=== PATIENT | female | born 1985 | race American Indian/Alaskan Native ===

== ENCOUNTER 2016-07-28 14:33 | Emergency (ER) | payer OTHER ==
[2016-07-28 23:08] VITALS: BP 138/86
[2016-07-28 23:13] LABS: Bilirubin,Urine NEG (Negative); Blood,Urine LG (Negative); Ketones,Urine 20 mg/dL (Negative); Leukocyte Esterase,Urine NEG (Negative); Mucus,Urine 1+ /HPF; Nitrite,Urine NEG (Negative); Urobilinogen,Urine < 2.0 mg/dL (<2.0)
[2016-07-28 23:14] LABS: RBC,Urine > 182.0 /HPF (0.0-6.0)
[2016-07-28] MEDS ORDERED: FLAGYL PO ONE (23:20)
== END 2016-07-28 23:20 | disposition home or self-care (01) ==
LOC: ED 14:33
DX: A59.9 Trichomoniasis, unspecified (principal)
CPT/HCPCS: 81001; 81025; 87086; 87210; 87591; 99283

== ENCOUNTER 2017-08-22 12:12 | Emergency (ER) | payer MEDICAID ==
[2017-08-22 12:24] VITALS: BP 135/81
[2017-08-22] MEDS ORDERED: FUL-GLO OP ONE (16:28)
[2017-08-22] MEDS ORDERED: TETRACAINE 0.5% OU ONE (16:28)
--- NOTE | 2017-08-22 16:40 | Emergency Department Report ---
[facility] Chief Complaint: Eye Problems Stated Complaint: PAINFUL TOOTH/PINK EYE Time Seen by Provider: 08/22/17 16:24 Duration: Today Side: Left Severity: moderate Symptoms: Yes Eye Itching, Yes Eye Redness, Yes Purulent Drainage, No Eye Pain, No Blurred Vision, No Preceding URI, No H/O Allergic Rhinitis, No Contact Lens Use, No Trauma, No Fever, No Headache Other History: 32F p/w c/o right sided eye irritiation and left upper toothache. Deneis fever, chills, nausea, vomiting. Right eye redness with discharge started yesterday. Toothache has been ongoing for several weeks, patient states he has a wisdom tooth erupting left side. States she has not yet made arrangements to see a dentist. Pt is AAox3, speaking in full sentences. ED Review of Systems ROS: Stated complaint: PAINFUL TOOTH/PINK EYE Other details as noted in HPI Constitutional: denies: chills, fever Eyes: eye pain. denies: eye discharge, vision change ENT: dental pain. denies: ear pain, throat pain Respiratory: denies: cough, shortness of breath, wheezing Cardiovascular: denies: chest pain, palpitations Endocrine: no symptoms reported Gastrointestinal: denies: abdominal pain, nausea, diarrhea Genitourinary: denies: urgency, dysuria, discharge Musculoskeletal: denies: back pain, joint swelling, arthralgia Skin: denies: rash, lesions Neurological: denies: headache, weakness, paresthesias Psychiatric: denies: anxiety, depression Hematological/Lymphatic: denies: easy bleeding, easy bruising ED Past Medical Hx - Past Medical History Hx Hypertension: Yes ( induced) - Surgical History Additional Surgical History: - Social History Smoking Status: Never Smoker Substance Use Type: Alcohol - Medications Home Medications: Home Medications Medication Instructions Recorded Confirmed Last Taken Type Albuterol Sulfate [Albuterol 0.63% 0.63 mg IH TID PRN #1 box 11/04/15 Unknown Rx NEBS] Azithromycin [Zithromax Z-CECILIA] 250 mg PO DAILY #6 tablet 11/04/15 Unknown Rx Benzonatate [Tessalon Perles] 100 mg PO Q8HR #15 capsule 11/04/15 Unknown Rx Amoxicillin [Amoxicillin TAB] 875 mg PO BID #20 tablet 08/25/16 Unknown Rx Fluticasone [Flonase] 1 spray NS QDAY #1 bottle 01/01/16 Unknown Rx predniSONE [Deltasone] 50 mg PO QAM #5 tablet 01/01/16 Unknown Rx Cyclobenzaprine [Flexeril] 10 mg PO TID PRN #30 tablet 03/19/16 Unknown Rx Ibuprofen [Motrin] 800 mg PO Q8HR PRN #30 tablet 03/19/16 Unknown Rx Acetaminophen/Codeine [Tylenol 1 tab PO Q6H PRN #10 tab 08/22/17 Unknown Rx /Codeine # 3 tab] Amoxicillin [Trimox CAP] 500 mg PO Q8H #30 capsule 08/22/17 Unknown Rx Benzocaine [Orajel Liquid 20%] 1 ml MM Q6HR PRN #1 bottle 08/22/17 Unknown Rx Chlorhexidine Mouthwash [Peridex] 15 ml MM BID #1 bottle 08/22/17 Unknown Rx Erythromycin [Erythromycin Ophth 1 applic OP QID #1 tube 08/22/17 Unknown Rx Oint] Ibuprofen [Motrin] 800 mg PO Q8HR PRN #25 tablet 08/22/17 Unknown Rx [facility] Exam - Exam General: Vital signs noted. No distress. Alert and acting appropriately. Eye Exam: Left Injection, Left Chemosis, Both EOMI, Neither Abnormal Pupil, Neither Eye Foreign Body HEENT: No Nasal Congestion, No Pharyngeal Erythema Remainder of HEENT: Abnormal (cavity left upper molar tooth #15) Lungs: Yes Clear Lung Sounds, No Good Air Exchange, No Wheezes, No Stridor, No Cough, No Nasal Flaring, No Retractions, No Use of Accessory Muscles ED Course Vital Signs 08/22/17 12:17 Temperature 97.7 F Pulse Rate 76 Respiratory 16 Rate Blood Pressure 135/81 Blood Pressure 135/81 [Left] O2 Sat by Pulse 100 Oximetry ED Medical Decision Making - Medical Decision Making A/P: Conjunctivitis, toothache, wisdom tooth 1- Motrin when necessary, amoxicillin ten-day course, Orajel when necessary, Peridex mouthwash daily basis, short course codeine when necessary, erythromycin eye ointment 2- I provided patient with information for multiple dental clinics to follow up for cavity 3- no clinical signs of facial abscess, no Justin's angina, no induration or cellulitis of floor of mouth or tongue 4- patient able to tolerate by mouth before discharge Critical care attestation.: If time is entered above; I have spent that time in minutes in the direct care of this critically ill patient, excluding procedure time. ED Disposition Clinical Impression: Toothache Conjunctivitis Qualifiers: Conjunctivitis type: acute Acute conjunctivitis type: unspecified Laterality: right Qualified Code(s): H10.31 - Unspecified acute conjunctivitis, right eye Disposition: - TO HOME OR SELFCARE Is pt being admited?: No Does the pt Need Aspirin: No Condition: Stable Instructions: Conjunctivitis (ED), Toothache (ED) Prescriptions: Acetaminophen/Codeine [Tylenol /Codeine # 3 tab] 1 tab PO Q6H PRN #10 tab PRN Reason: Pain Amoxicillin [Trimox CAP] 500 mg PO Q8H #30 capsule Benzocaine [Orajel Liquid 20%] 1 ml MM Q6HR PRN #1 bottle PRN Reason: Toothache Chlorhexidine Mouthwash [Peridex] 15 ml MM BID #1 bottle Erythromycin [Erythromycin Ophth Oint] 1 applic OP QID #1 tube Ibuprofen [Motrin] 800 mg PO Q8HR PRN #25 tablet PRN Reason: Pain Referrals: [facility] [Outside] - 3-5 Days [facility] [Outside] - 3-5 Days KRIS LEE MD [Staff Physician] - 3-5 Days ROMAINE MAIER MD [Primary Care Provider] - 3-5 Days REBEKAH MALCOLM MD [Staff Physician] - 3-5 Days Forms: Accompanied Note, Work/School Release Form(ED) Time of Disposition: 16:38
== END 2017-08-22 16:50 | disposition home or self-care (01) ==
LOC: ED 12:12
DX: H10.31 Unspecified acute conjunctivitis, right eye (principal); K08.89 Other specified disorders of teeth and supporting structures

== ENCOUNTER 2017-08-24 23:27 | Emergency (ER) | payer MEDICAID ==
[2017-08-24] MEDS ORDERED: ASPIRIN PO ONE (23:39)
[2017-08-25 00:08] LABS: Basophils % (Auto) 0.4 % (0.0-1.8); Eosinophils # (Auto) 0.1 K/mm3 (0.0-0.4); Eosinophils % (Auto) 1.7 % (0.0-4.3); Hematocrit 38.2 % (30.3-42.9); Hemoglobin 12.4 gm/dl (10.1-14.3); Lymphocytes # (Auto) 2.8 K/mm3 (1.2-5.4); Lymphocytes % (Auto) 44.5 % (13.4-35.0); Mean Corpuscular HGB Conc 32 % (30-34); Mean Corpuscular Hemoglobin 28 pg (28-32); Mean Corpuscular Volume 87 fl (79-97); Monocytes # (Auto) 0.5 K/mm3 (0.0-0.8); Monocytes % (Auto) 7.2 % (0.0-7.3); Platelet Count 318 K/mm3 (140-440); Red Blood Count 4.37 M/mm3 (3.65-5.03); Red Cell Distribution Width 15.6 % (13.2-15.2)
[2017-08-25 00:28] LABS: BUN/Creatinine Ratio 22; Blood Urea Nitrogen 13 mg/dL (7-17); Calcium 8.7 mg/dL (8.4-10.2); Hemolysis Index 7
--- NOTE | 2017-08-25 02:35 | Emergency Department Report ---
ED Chest Pain HPI - General Chief Complaint: Chest Pain Stated Complaint: CP Time Seen by Provider: 08/25/17 02:26 Source: patient Mode of arrival: Ambulatory Limitations: No Limitations - History of Present Illness Initial Comments: Patient is 32 years old female with no significant past medical history. Patient presented to the ER complaining of left-sided chest pain started yesterday. Patient describes her pain as heaviness and sharp and sometimes associated with shortness of breath. Patient denied any fever or cough recently. No nausea no vomiting. MD Complaint: chest pain Onset: during rest Pain Location: left chest Pain Radiation: none Quality: heaviness, sharp - Related Data Previous Rx's Medication Instructions Recorded Last Taken Type Albuterol Sulfate [Albuterol 0.63% 0.63 mg IH TID PRN #1 box 11/04/15 Unknown Rx NEBS] Azithromycin [Zithromax Z-CECILIA] 250 mg PO DAILY #6 tablet 11/04/15 Unknown Rx Benzonatate [Tessalon Perles] 100 mg PO Q8HR #15 capsule 11/04/15 Unknown Rx Amoxicillin [Amoxicillin TAB] 875 mg PO BID #20 tablet 01/01/16 Unknown Rx Fluticasone [Flonase] 1 spray NS QDAY #1 bottle 01/01/16 Unknown Rx predniSONE [Deltasone] 50 mg PO QAM #5 tablet 01/01/16 Unknown Rx Cyclobenzaprine [Flexeril] 10 mg PO TID PRN #30 tablet 03/19/16 Unknown Rx Ibuprofen [Motrin] 800 mg PO Q8HR PRN #30 tablet 03/19/16 Unknown Rx Acetaminophen/Codeine [Tylenol 1 tab PO Q6H PRN #10 tab 08/22/17 Unknown Rx /Codeine # 3 tab] Amoxicillin [Trimox CAP] 500 mg PO Q8H #30 capsule 08/22/17 Unknown Rx Benzocaine [Orajel Liquid 20%] 1 ml MM Q6HR PRN #1 bottle 08/22/17 Unknown Rx Chlorhexidine Mouthwash [Peridex] 15 ml MM BID #1 bottle 08/22/17 Unknown Rx Erythromycin [Erythromycin Ophth 1 applic OP QID #1 tube 08/22/17 Unknown Rx Oint] Ibuprofen [Motrin] 800 mg PO Q8HR PRN #25 tablet 08/22/17 Unknown Rx Allergies Allergy/AdvReac Type Severity Reaction Status Date / Time No Known Allergies Allergy Verified 08/06/15 06:23 Heart Score - HEART Score History: Slightly suspicious EKG: Normal Age: < 45 Risk factors: No known risk factors Troponin: < normal limit HEART Score: 0 ED Review of Systems ROS: Stated complaint: CP Other details as noted in HPI Comment: All other systems reviewed and negative Constitutional: denies: chills, fever Respiratory: shortness of breath. denies: cough, orthopnea, SOB with exertion, SOB at rest, stridor, wheezing Cardiovascular: chest pain. denies: palpitations, dyspnea on exertion, orthopnea Gastrointestinal: denies: abdominal pain, nausea, vomiting, diarrhea, constipation, hematemesis, melena, hematochezia Neurological: denies: headache, weakness, numbness, paresthesias ED Past Medical Hx - Past Medical History Previous Medical History?: Yes Hx Hypertension: Yes ( induced) - Surgical History Past Surgical History?: Yes Additional Surgical History: X2 - Social History Smoking Status: Current Every Day Smoker Substance Use Type: None - Medications Home Medications: Home Medications Medication Instructions Recorded Confirmed Last Taken Type Albuterol Sulfate [Albuterol 0.63% 0.63 mg IH TID PRN #1 box 11/04/15 Unknown Rx NEBS] Azithromycin [Zithromax Z-CECILIA] 250 mg PO DAILY #6 tablet 11/04/15 Unknown Rx Benzonatate [Tessalon Perles] 100 mg PO Q8HR #15 capsule 11/04/15 Unknown Rx Amoxicillin [Amoxicillin TAB] 875 mg PO BID #20 tablet 01/01/16 Unknown Rx Fluticasone [Flonase] 1 spray NS QDAY #1 bottle 01/01/16 Unknown Rx predniSONE [Deltasone] 50 mg PO QAM #5 tablet 01/01/16 Unknown Rx Cyclobenzaprine [Flexeril] 10 mg PO TID PRN #30 tablet 03/19/16 Unknown Rx Ibuprofen [Motrin] 800 mg PO Q8HR PRN #30 tablet 03/19/16 Unknown Rx Acetaminophen/Codeine [Tylenol 1 tab PO Q6H PRN #10 tab 08/22/17 Unknown Rx /Codeine # 3 tab] Amoxicillin [Trimox CAP] 500 mg PO Q8H #30 capsule 08/22/17 Unknown Rx Benzocaine [Orajel Liquid 20%] 1 ml MM Q6HR PRN #1 bottle 08/22/17 Unknown Rx Chlorhexidine Mouthwash [Peridex] 15 ml MM BID #1 bottle 08/22/17 Unknown Rx Erythromycin [Erythromycin Ophth 1 applic OP QID #1 tube 08/22/17 Unknown Rx Oint] Ibuprofen [Motrin] 800 mg PO Q8HR PRN #25 tablet 08/22/17 Unknown Rx ED Physical Exam - General Limitations: No Limitations General appearance: alert, in no apparent distress - Head Head exam: Present: atraumatic, normocephalic, normal inspection - Eye Eye exam: Present: normal appearance, PERRL - ENT ENT exam: Present: normal exam, normal orophraynx, mucous membranes moist - Neck Neck exam: Present: normal inspection, full ROM. Absent: tenderness, meningismus - Respiratory Respiratory exam: Present: normal lung sounds bilaterally, chest wall tenderness. Absent: respiratory distress, wheezes, rales, rhonchi, accessory muscle use, decreased breath sounds, prolonged expiratory - Cardiovascular Cardiovascular Exam: Present: regular rate, normal rhythm, normal heart sounds - GI/Abdominal GI/Abdominal exam: Present: soft. Absent: distended, tenderness, guarding, rebound, rigid, normal bowel sounds, organomegaly, mass, bruit, pulsatile mass, hernia - Extremities Exam Extremities exam: Present: normal inspection, full ROM. Absent: normal capillary refill, pedal edema, calf tenderness - Back Exam Back exam: Present: normal inspection, full ROM. Absent: CVA tenderness (R), CVA tenderness (L), muscle spasm, paraspinal tenderness, vertebral tenderness - Neurological Exam Neurological exam: Present: alert, oriented X3, CN II-XII intact, normal gait - Skin Skin exam: Present: warm, intact, normal color ED Course Vital Signs 08/25/17 08/25/17 02:13 02:30 Temperature 98 F Pulse Rate 68 67 Respiratory 14 15 Rate Blood Pressure 111/59 Blood Pressure 117/85 [Left] O2 Sat by Pulse 100 100 Oximetry - Reevaluation(s) Reevaluation #1: 08/25/17 04:18 Patient stated that she is feeling better assessment is completely resolved now. I believe this is most likely costochondritis given the chest tenderness and low probability for PE. I advised the patient follow up with her primary care physician in the next 2-3 days. I also advised To return to the ER if her symptoms are not improving. ED Medical Decision Making - Lab Data Result diagrams: 08/25/17 00:01 08/25/17 00:01 - EKG Data -: EKG Interpreted by Me EKG shows normal: sinus rhythm - EKG Data Interpretation: no acute changes - Radiology Data Radiology results: report reviewed Referring Physician: KLEVER ROMAN Patient Name: CALLI BREWER Date of : 1985 Sex: Female Report Date: 2017-08-25 Report Status: Finalized Findings [facility] [address] [place] [address] XRay Report Signed Patient: CALLI BREWER MR#: [id number] : 1985 Acct:[id number] Age/Sex: 32 / F ADM Date: 08/24/17 Loc: ED Attending Dr: Ordering Physician: KLEVER ROMAN Date of Service: 08/25/17 Procedure(s): XR chest 1V ap Accession Number(s): [id number] cc: KLEVER ROMAN Fluoro Time In Minutes: FINAL REPORT PROCEDURE: XR CHEST 1V AP TECHNIQUE: Chest radiograph anteroposterior view. CPT 52727 HISTORY: chest pain COMPARISON: No prior studies are available for comparison. FINDINGS: Heart: Normal. Mediastinum/Vessels: Normal. Lungs/Pleural space: Lungs are clear and expanded. There are no infiltrates, effusions or pneumothoraces.. Bony thorax: No acute osseous abnormality. Life support devices: None. IMPRESSION: No acute cardiopulmonary abnormality. Transcribed By: CO Dictated By: KAYLI LAMB MD Electronically Authenticated By: KAYLI LAMB MD Signed Date/Time: 08/25/17315 DD/ 5 TD/TT: 08/25/17315 Critical care attestation.: If time is entered above; I have spent that time in minutes in the direct care of this critically ill patient, excluding procedure time. ED Disposition Clinical Impression: Atypical chest pain, Costochondritis, acute Disposition: - TO HOME OR SELFCARE Is pt being admited?: No Condition: Stable Instructions: Chest Pain (ED), Costochondritis (ED) Referrals: ROMAINE MAIER MD [Primary Care Provider] - 3-5 Days
--- NOTE | 2017-08-25 03:22 | XRay Report ---
FINAL REPORT PROCEDURE: XR CHEST 1V AP TECHNIQUE: Chest radiograph anteroposterior view. CPT 47405 HISTORY: chest pain COMPARISON: No prior studies are available for comparison. FINDINGS: Heart: Normal. Mediastinum/Vessels: Normal. Lungs/Pleural space: Lungs are clear and expanded. There are no infiltrates, effusions or pneumothoraces.. Bony thorax: No acute osseous abnormality. Life support devices: None. IMPRESSION: No acute cardiopulmonary abnormality.
[2017-08-25 04:49] VITALS: BP 118/63
== END 2017-08-25 04:49 | disposition home or self-care (01) ==
LOC: ED 23:27
DX: M94.0 Chondrocostal junction syndrome [Tietze] (principal); R07.89 Other chest pain; F17.200 Nicotine dependence, unspecified, uncomplicated
CPT/HCPCS: 36415; 71045; 80048; 84484; 85025; 85379; 93005; 93010

== ENCOUNTER 2017-11-12 05:57 | Emergency (ER) | payer MEDICAID | END 2017-11-12 06:55 | disposition left against medical advice (07) | LOC: ED 05:57 | DX: R06.02 Shortness of breath (principal); Z53.21 Procedure and treatment not carried out due to patient leaving prior to being seen by health care provider ==

== ENCOUNTER 2020-07-16 12:52 | Outpatient (CLI) | payer MEDICAID ==
--- NOTE | 2020-07-16 14:10 | Mammography Report ---
BILATERAL DIAGNOSTIC MAMMOGRAM and left breast targeted ultrasound. INDICATION: Spontaneous left bloody nipple discharge. COMPARISON: None available, this is a baseline exam. FINDINGS: Breasts demonstrate scattered fibroglandular breast tissue. There is no suspicious mass, microcalcifi cations, or other abnormality within either breast. No mammographic correlate to explain reported lef t bloody nipple discharge. CAD was utilized. A targeted ultrasound of the left subareolar breast was performed. This shows a focally dilated duct with questionable internal debris versus intraductal mass. This is located directly deep to the left nipple and measures 20 mm in length and 3 mm in diameter. An ultrasound-guided core biopsy of this is recommended. IMPRESSION: Focally dilated duct in the left retroareolar breast with questionable debris versus intraductal mass . An ultrasound-guided biopsy is recommended. Findings were discussed with the patient the conclusion of the exam by Dr. Neves. NOTE: The patient reports spontaneous left bloody nipple discharge and if this biopsy is found to be benign, an MRI of the breast would be recommended. BI-RADS Category 4: Suspicious for Malignancy. A written summary of these findings will be mailed to the patient. FURTHER INFORMATION: According to the [employer], yearly mammograms are recommend ed starting at age 40 and continuing as long as a woman is in good health. Breast MRI is recommended for women with an approximately 20-25% or greater lifetime risk of breast cancer, including women wi th a strong family history of breast or ovarian cancer and women who have been treated for Hodgkin's disease. Signer Name: Aren Neves MD Signed: 07/16/2020 2:06 PM Workstation Name: [id number]
== END 2020-07-16 12:53 | disposition home or self-care (01) ==
LOC: SPVWC 12:52
PROVIDERS: ATTEND Surgery
DX: N64.89 Other specified disorders of breast (principal); N64.52 Nipple discharge
CPT/HCPCS: 77066

== ENCOUNTER 2021-08-30 17:31 | Emergency (ER) | payer MEDICAID ==
[2021-08-30 18:18] LABS: Mean Corpuscular HGB Conc 29 % (30-34); Platelet Count 587 K/mm3 (140-440); Red Blood Count 3.28 M/mm3 (3.65-5.03)
[2021-08-30 18:21] LABS: Hematocrit 22.3 % (30.3-42.9); Hemoglobin 6.4 gm/dl (10.1-14.3); Lymphocytes % (Auto) 28.5 % (13.4-35.0); Mean Corpuscular Volume 68 fl (79-97); Red Cell Distribution Width 26.2 % (13.2-15.2)
[2021-08-30 18:22] LABS: Basophils % (Auto) 0.6 % (0.0-1.8); Eosinophils % (Auto) 0.5 % (0.0-4.3); Lymphocytes # (Auto) 1.6 K/mm3 (1.2-5.4); Monocytes # (Auto) 0.6 K/mm3 (0.0-0.8); Monocytes % (Auto) 14.4 % (0.0-7.3)
[2021-08-30 18:31] LABS: Alanine Aminotransferase 9 units/L (7-56); Albumin 4.1 g/dL (3.9-5); Blood Urea Nitrogen 9 mg/dL (7-17); Calcium 9.7 mg/dL (8.4-10.2); Hemolysis Index 15
[2021-08-30 18:32] LABS: BUN/Creatinine Ratio 13
[2021-08-30] MEDS ORDERED: SODIUM CHLORIDE 0.9% 500 ML 500 ML IV ONE (19:52)
--- NOTE | 2021-08-30 19:56 | Emergency Department Report ---
ED General Adult HPI - General Chief complaint: Weakness Stated complaint: PALPITATION/WEAK/DIZZY Time Seen by Provider: 08/30/21 19:52 Source: patient Mode of arrival: Ambulatory Limitations: No Limitations - History of Present Illness Initial comments: Patient is 36 years old female with history of chronic anemia secondary to fibroid with history of blood transfusion x2. Patient presented to the ER complaining of shortness of breath generalized weakness for the last few days. Patient stated that she is not bleeding now. She denied any chest pain however reported palpitation. - Related Data Previous Rx's Medication Instructions Recorded Last Taken Type Albuterol Sulfate [Albuterol 0.63% 0.63 mg IH TID PRN #1 box 11/04/15 Unknown Rx NEBS] Azithromycin [Zithromax Z-CECILIA] 250 mg PO DAILY #6 tablet 11/04/15 Unknown Rx Benzonatate [Tessalon Perles] 100 mg PO Q8HR #15 capsule 11/04/15 Unknown Rx Amoxicillin [Amoxicillin TAB] 875 mg PO BID #20 tablet 01/01/16 Unknown Rx Fluticasone [Flonase] 1 spray NS QDAY #1 bottle 01/01/16 Unknown Rx predniSONE [Deltasone] 50 mg PO QAM #5 tablet 01/01/16 Unknown Rx Cyclobenzaprine [Flexeril] 10 mg PO TID PRN #30 tablet 03/19/16 Unknown Rx Ibuprofen [Motrin] 800 mg PO Q8HR PRN #30 tablet 03/19/16 Unknown Rx Acetaminophen/Codeine [Tylenol 1 tab PO Q6H PRN #10 tab 08/22/17 Unknown Rx /Codeine # 3 tab] Amoxicillin [Trimox CAP] 500 mg PO Q8H #30 capsule 08/22/17 Unknown Rx Benzocaine [Orajel Liquid 20%] 1 ml MM Q6HR PRN #1 bottle 08/22/17 Unknown Rx Chlorhexidine Mouthwash [Peridex] 15 ml MM BID #1 bottle 08/22/17 Unknown Rx Erythromycin [Erythromycin Ophth 1 applic OP QID #1 tube 08/22/17 Unknown Rx Oint] Ibuprofen [Motrin] 800 mg PO Q8HR PRN #25 tablet 08/22/17 Unknown Rx Naproxen [Naprosyn] 500 mg PO BID #14 tablet 08/25/17 Unknown Rx Allergies Allergy/AdvReac Type Severity Reaction Status Date / Time No Known Allergies Allergy Verified 08/06/15 06:23 ED Review of Systems ROS: Stated complaint: PALPITATION/WEAK/DIZZY Other details as noted in HPI Comment: All other systems reviewed and negative Constitutional: denies: chills, fever Respiratory: shortness of breath, SOB with exertion, SOB at rest. denies: cough Cardiovascular: palpitations. denies: chest pain Gastrointestinal: denies: abdominal pain, nausea, vomiting Musculoskeletal: denies: back pain Neurological: denies: headache, weakness, numbness ED Past Medical Hx - Past Medical History Previous Medical History?: Yes Hx Hypertension: Yes ( induced) Additional medical history: anemia, heart palpitations - Surgical History Past Surgical History?: Yes Additional Surgical History: X2 - Social History Smoking Status: Current Every Day Smoker Substance Use Type: None - Medications Home Medications: Home Medications Medication Instructions Recorded Confirmed Last Taken Type Albuterol Sulfate [Albuterol 0.63% 0.63 mg IH TID PRN #1 box 11/04/15 Unknown Rx NEBS] Azithromycin [Zithromax Z-CECILIA] 250 mg PO DAILY #6 tablet 11/04/15 Unknown Rx Benzonatate [Tessalon Perles] 100 mg PO Q8HR #15 capsule 11/04/15 Unknown Rx Amoxicillin [Amoxicillin TAB] 875 mg PO BID #20 tablet 01/01/16 Unknown Rx Fluticasone [Flonase] 1 spray NS QDAY #1 bottle 01/01/16 Unknown Rx predniSONE [Deltasone] 50 mg PO QAM #5 tablet 01/01/16 Unknown Rx Cyclobenzaprine [Flexeril] 10 mg PO TID PRN #30 tablet 03/19/16 Unknown Rx Ibuprofen [Motrin] 800 mg PO Q8HR PRN #30 tablet 03/19/16 Unknown Rx Acetaminophen/Codeine [Tylenol 1 tab PO Q6H PRN #10 tab 08/22/17 Unknown Rx /Codeine # 3 tab] Amoxicillin [Trimox CAP] 500 mg PO Q8H #30 capsule 08/22/17 Unknown Rx Benzocaine [Orajel Liquid 20%] 1 ml MM Q6HR PRN #1 bottle 08/22/17 Unknown Rx Chlorhexidine Mouthwash [Peridex] 15 ml MM BID #1 bottle 08/22/17 Unknown Rx Erythromycin [Erythromycin Ophth 1 applic OP QID #1 tube 08/22/17 Unknown Rx Oint] Ibuprofen [Motrin] 800 mg PO Q8HR PRN #25 tablet 08/22/17 Unknown Rx Naproxen [Naprosyn] 500 mg PO BID #14 tablet 08/25/17 Unknown Rx ED Physical Exam - General Limitations: No Limitations General appearance: alert, in no apparent distress - Head Head exam: Present: atraumatic, normocephalic, normal inspection - Eye Eye exam: Present: other (Pale conjunctive a.) - ENT ENT exam: Present: mucous membranes moist - Neck Neck exam: Present: normal inspection. Absent: tenderness, meningismus - Respiratory Respiratory exam: Present: normal lung sounds bilaterally - Cardiovascular Cardiovascular Exam: Present: regular rate, normal rhythm, normal heart sounds. Absent: systolic murmur, diastolic murmur, rubs, gallop - GI/Abdominal GI/Abdominal exam: Present: soft, normal bowel sounds. Absent: distended, tenderness, guarding, rebound, rigid, organomegaly, mass, bruit, pulsatile mass, hernia - Extremities Exam Extremities exam: Present: normal inspection, full ROM, normal capillary refill. Absent: tenderness, pedal edema, joint swelling, calf tenderness - Back Exam Back exam: Present: normal inspection, full ROM. Absent: CVA tenderness (R), CVA tenderness (L) - Neurological Exam Neurological exam: Present: alert, oriented X3, CN II-XII intact, normal gait, reflexes normal. Absent: motor sensory deficit - Psychiatric Psychiatric exam: Present: normal mood - Skin Skin exam: Present: warm, intact, normal color ED Course Vital Signs 08/30/21 08/30/21 08/30/21 17:46 21:27 21:42 Temperature 98.7 F 98.4 F 98.4 F Pulse Rate 89 78 81 Respiratory 18 18 18 Rate Blood Pressure 127/74 111/64 120/63 O2 Sat by Pulse 100 98 100 Oximetry ED Medical Decision Making - Lab Data Result diagrams: 08/31/21 00:59 08/30/21 17:59 - Medical Decision Making Patient is 36 years old female with history of chronic anemia secondary to fibroid with history of blood transfusion x2. Patient presented to the ER complaining of shortness of breath generalized weakness for the last few days. Patient stated that she is not bleeding now. She denied any chest pain however reported palpitation. Patient found to have a hemoglobin of 6.4. Patient received 1 units of PRBC and her current hemoglobin now is 7.2. Patient stated that she is feeling better. Patient advised to follow-up with gynecology in the next 2 to 3 days and to return to the ER if she develop any new symptoms. Critical Care Time: Yes Critical care time in (mins) excluding proc time.: 35 Critical care attestation.: If time is entered above; I have spent that time in minutes in the direct care of this critically ill patient, excluding procedure time. ED Disposition Clinical Impression: Symptomatic anemia, Uterine fibroid Disposition: 01 HOME / SELF CARE / HOMELESS Is pt being admited?: No Condition: Stable Instructions: Uterine Fibroids, Preventing Iron Deficiency Anemia, Adult Referrals: MARVEL JEAN MD [Primary Care Provider] - 3-5 Days YADI CATALAN MD [Staff Physician] - 3-5 Days
[2021-08-31 01:23] LABS: Hematocrit 23.9 % (30.3-42.9); Hemoglobin 7.2 gm/dl (10.1-14.3)
[2021-08-31 02:29] VITALS: BP 118/60
== END 2021-08-31 02:30 | disposition home or self-care (01) ==
LOC: ED 17:31
DX: D25.9 Leiomyoma of uterus, unspecified (principal); I10 Essential (primary) hypertension; F17.200 Nicotine dependence, unspecified, uncomplicated; Z98.890 Other specified postprocedural states; Z79.899 Other long term (current) drug therapy
CPT/HCPCS: 36415; 36430; 80053; 85014; 85018; 85025; 86850; 86900; 86901; 86920; 99283; J7040; P9016

== ENCOUNTER 2021-10-25 13:14 | Inpatient (IN) | payer MEDICAID ==
[2021-10-25 15:23] LABS: Blood Urea Nitrogen 8 mg/dL (7-17); Calcium 9.1 mg/dL (8.4-10.2); Hemolysis Index 0
[2021-10-25 15:25] LABS: BUN/Creatinine Ratio 16
[2021-10-25 15:28] LABS: Mean Corpuscular HGB Conc 28 % (30-34); Platelet Count 316 K/mm3 (140-440); Red Blood Count 2.09 M/mm3 (3.65-5.03)
[2021-10-25 15:31] LABS: Hematocrit 13.1 % (30.3-42.9); Hemoglobin 3.7 gm/dl (10.1-14.3); Mean Corpuscular Volume 63 fl (79-97); Red Cell Distribution Width 25.3 % (13.2-15.2)
[2021-10-25 16:47] LABS: Basophils % (Manual) 0 % (0.0-1.8); Eosinophils % (Manual) 0 % (0.0-4.3); Total Cells Counted 100
[2021-10-25 16:48] LABS: Hypochromasia 3+; Platelet Estimate Consistent w Auto; Tear Drop Cells Few
[2021-10-25] MEDS ORDERED: SODIUM CHLORIDE 0.9% 1000 ML 1,000 ML IV ONE (16:57)
[2021-10-25] MEDS ORDERED: SODIUM CHLORIDE 0.9% 1000 ML 1,000 ML ONE (16:58)
[2021-10-25] MEDS ORDERED: SODIUM CHLORIDE 0.9% 500 ML 500 ML IV ONE (19:03)
--- NOTE | 2021-10-25 19:15 | Emergency Department Report ---
- General Chief complaint: Weakness Stated complaint: SOB/HEADACHE Time Seen by Provider: 10/25/21 19:01 Source: patient Mode of arrival: Ambulatory Limitations: No Limitations - History of Present Illness Initial comments: 36-year-old female with 3 miscarriage with h/o bleeding fibroid who present with generalized muscle weakness for the last 2 weeks progressively getting w orse. She also reports some from headache as well. She noted starting her heavy menstrual bleeding 3 days ago. She also have history of chronic anemia. No visual changes reported. No fever or chills or any chest pain or palpitation. However walking from one block to the other worsen her fatigue. She initially thought it was Covid but tested negative twice. She also noted starting a new job and could not get off. No other modifying or associated factors reported. MD Complaint: generalized weakness Severity scale (0 -10): 10 - Related Data Previous Rx's Medication Instructions Recorded Last Taken Type Albuterol Sulfate [Albuterol 0.63% 0.63 mg IH TID PRN #1 box 11/04/15 Unknown Rx NEBS] Azithromycin [Zithromax Z-CECILIA] 250 mg PO DAILY #6 tablet 11/04/15 Unknown Rx Benzonatate [Tessalon Perles] 100 mg PO Q8HR #15 capsule 11/04/15 Unknown Rx Amoxicillin [Amoxicillin TAB] 875 mg PO BID #20 tablet 01/01/16 Unknown Rx Fluticasone [Flonase] 1 spray NS QDAY #1 bottle 01/01/16 Unknown Rx predniSONE [Deltasone] 50 mg PO QAM #5 tablet 01/01/16 Unknown Rx Cyclobenzaprine [Flexeril] 10 mg PO TID PRN #30 tablet 03/19/16 Unknown Rx Ibuprofen [Motrin] 800 mg PO Q8HR PRN #30 tablet 03/19/16 Unknown Rx Acetaminophen/Codeine [Tylenol 1 tab PO Q6H PRN #10 tab 08/22/17 Unknown Rx /Codeine # 3 tab] Amoxicillin [Trimox CAP] 500 mg PO Q8H #30 capsule 08/22/17 Unknown Rx Benzocaine [Orajel Liquid 20%] 1 ml MM Q6HR PRN #1 bottle 08/22/17 Unknown Rx Chlorhexidine Mouthwash [Peridex] 15 ml MM BID #1 bottle 08/22/17 Unknown Rx Erythromycin [Erythromycin Ophth 1 applic OP QID #1 tube 08/22/17 Unknown Rx Oint] Ibuprofen [Motrin] 800 mg PO Q8HR PRN #25 tablet 08/22/17 Unknown Rx Naproxen [Naprosyn] 500 mg PO BID #14 tablet 08/25/17 Unknown Rx Allergies Allergy/AdvReac Type Severity Reaction Status Date / Time No Known Allergies Allergy Verified 08/06/15 06:23 ED Review of Systems ROS: Stated complaint: SOB/HEADACHE Other details as noted in HPI Comment: All other systems reviewed and negative Constitutional: weakness (fatigue ) Neurological: denies: numbness, paresthesias Hematological/Lymphatic: other (heavy menstrual bleeding ) ED Past Medical Hx - Past Medical History Previous Medical History?: Yes Hx Hypertension: Yes ( induced) Additional medical history: anemia, heart palpitations - Surgical History Past Surgical History?: Yes Additional Surgical History: X2 - Social History Smoking Status: Current Every Day Smoker Substance Use Type: None - Medications Home Medications: Home Medications Medication Instructions Recorded Confirmed Last Taken Type Albuterol Sulfate [Albuterol 0.63% 0.63 mg IH TID PRN #1 box 11/04/15 Unknown Rx NEBS] Azithromycin [Zithromax Z-CECILIA] 250 mg PO DAILY #6 tablet 11/04/15 Unknown Rx Benzonatate [Tessalon Perles] 100 mg PO Q8HR #15 capsule 11/04/15 Unknown Rx Amoxicillin [Amoxicillin TAB] 875 mg PO BID #20 tablet 01/01/16 Unknown Rx Fluticasone [Flonase] 1 spray NS QDAY #1 bottle 01/01/16 Unknown Rx predniSONE [Deltasone] 50 mg PO QAM #5 tablet 01/01/16 Unknown Rx Cyclobenzaprine [Flexeril] 10 mg PO TID PRN #30 tablet 03/19/16 Unknown Rx Ibuprofen [Motrin] 800 mg PO Q8HR PRN #30 tablet 03/19/16 Unknown Rx Acetaminophen/Codeine [Tylenol 1 tab PO Q6H PRN #10 tab 08/22/17 Unknown Rx /Codeine # 3 tab] Amoxicillin [Trimox CAP] 500 mg PO Q8H #30 capsule 08/22/17 Unknown Rx Benzocaine [Orajel Liquid 20%] 1 ml MM Q6HR PRN #1 bottle 08/22/17 Unknown Rx Chlorhexidine Mouthwash [Peridex] 15 ml MM BID #1 bottle 08/22/17 Unknown Rx Erythromycin [Erythromycin Ophth 1 applic OP QID #1 tube 08/22/17 Unknown Rx Oint] Ibuprofen [Motrin] 800 mg PO Q8HR PRN #25 tablet 08/22/17 Unknown Rx Naproxen [Naprosyn] 500 mg PO BID #14 tablet 08/25/17 Unknown Rx ED Physical Exam - General Limitations: No Limitations General appearance: alert, in no apparent distress - Head Head exam: Present: atraumatic, normal inspection - Eye Eye exam: Present: other (cynosis) Pupils: Present: normal accommodation - ENT ENT exam: Present: normal exam, normal orophraynx, mucous membranes moist - Neck Neck exam: Present: normal inspection, full ROM. Absent: tenderness - Respiratory Respiratory exam: Present: normal lung sounds bilaterally. Absent: respiratory distress, accessory muscle use - Cardiovascular Cardiovascular Exam: Present: regular rate, normal rhythm, normal heart sounds - GI/Abdominal GI/Abdominal exam: Present: soft, normal bowel sounds. Absent: distended, tende rness - Extremities Exam Extremities exam: Present: normal inspection, full ROM, normal capillary refill. Absent: tenderness - Back Exam Back exam: Absent: tenderness - Neurological Exam Neurological exam: Present: alert, oriented X3 - Psychiatric Psychiatric exam: Present: normal affect, normal mood - Skin Skin exam: Present: warm, cyanosis ED Course Vital Signs 10/25/21 10/25/21 10/25/21 14:15 17:15 20:03 Temperature 98.9 F 99.1 F Pulse Rate 96 H 70 Respiratory 20 18 Rate Blood Pressure 128/68 Blood Pressure 132/71 [Right] O2 Sat by Pulse 100 98 100 Oximetry 10/25/21 10/25/21 10/25/21 20:16 20:30 20:35 Temperature 99.5 F 99.5 F Pulse Rate 99 H 103 H 97 H Respiratory 14 10 L 17 Rate Blood Pressure 127/67 127/67 Blood Pressure [Right] O2 Sat by Pulse 100 100 100 Oximetry 10/25/21 10/25/21 10/25/21 20:46 20:50 21:00 Temperature 99.5 F Pulse Rate 96 H 92 H 94 H Respiratory 17 18 21 Rate Blood Pressure 127/67 125/65 125/65 Blood Pressure [Right] O2 Sat by Pulse 100 100 100 Oximetry 10/25/21 10/25/21 10/25/21 21:16 21:30 21:46 Temperature Pulse Rate 99 H 89 89 Respiratory 13 15 24 Rate Blood Pressure 125/65 122/65 122/65 Blood Pressure [Right] O2 Sat by Pulse 99 100 100 Oximetry 10/25/21 10/25/21 10/25/21 22:00 22:01 22:02 Temperature 99.5 F Pulse Rate 93 H 100 H Respiratory 21 17 Rate Blood Pressure 119/69 Blood Pressure 116/76 [Right] O2 Sat by Pulse 100 97 100 Oximetry 10/25/21 22:10 Temperature Pulse Rate 91 H Respiratory 23 Rate Blood Pressure 119/69 Blood Pressure [Right] O2 Sat by Pulse 100 Oximetry - Reevaluation(s) Reevaluation #1: 10/25/21 22:37 pt just started on the second unit of pRBC and probably going to need about 3-4 units keeping the patient in the ED for that long will not be ideal so Dr Nogueira who accept pt for further evaluation and treatment ED Medical Decision Making - Lab Data Result diagrams: 10/25/21 14:46 10/25/21 14:46 - Medical Decision Making here with generalized muscle fatigue and noted with generalized cynosis-- and pale conjunctival --couple with heavy menses could be the culpril of her sign and symptoms--due to severe anemia, but could not rule out cardiopulmonary cause such as myocardial infarction, systemic infection such UTI so to rule out those will go ahead and order routine labs including CBC, CMP, Urinalysis, and thyroid profile. In the meantime will start with ivf ns 1L bolus-- Noted with severe anemia with hemoglobin/hematocrit 3.7/13.1 -so will go ahead and start with 2 units of pRBC and consider admission as this patient is likely going to need more than 2 units. EKG ordered to rule out any cardiac compromised due to severe anemia. Critical care attestation.: If time is entered above; I have spent that time in minutes in the direct care of this critically ill patient, excluding procedure time. ED Disposition Clinical Impression: Severe anemia, Generalized muscle weakness, Fatigue associated with anemia Disposition: ADMITTED INPATIENT Is pt being admited?: No Does the pt Need Aspirin: No Condition: Stable Referrals: MARVEL JEAN MD [Primary Care Provider] - 3-5 Days Time of Disposition: 22:40 (Dr Nogueira consulted who accept pt for further ealuation and treatment)
[2021-10-25 20:40] LABS: Free T4 (Free Thyroxine) 1.11 ng/dL (0.76-1.46)
[2021-10-25] MEDS ORDERED: ALBUTEROL 2.5 MG/3 ML NEBU IH PRN (23:33)
[2021-10-25] MEDS ORDERED: MORPHINE 2 MG/1 ML INJ IV PRN (23:33)
[2021-10-25] MEDS ORDERED: MORPHINE 4 MG/1 ML INJ IV PRN (23:33)
[2021-10-25] MEDS ORDERED: ONDANSETRON 4 MG/2 ML INJ IV PRN (23:33)
--- NOTE | 2021-10-25 23:41 | History and Physical Report ---
History of Present Illness Date of examination: 10/25/21 Date of admission: 10/25/21 Chief complaint: Generalized weakness Shortness of breath Headache History of present illness: 36-year-old female with 3 miscarriage with h/o bleeding fibroid who present with generalized muscle weakness for the last 2 weeks progressively getting worse. She also reports some from headache as well. She noted starting her heavy menstrual bleeding 3 days ago. She also have history of chronic anemia. No visual changes reported. No fever or chills or any chest pain or palpitation. However walking from one block to the other worsen her fatigue. She initially thought it was Covid but tested negative twice. She also noted starting a new job and could not get off. No other modifying or associated factors reported In the emergency room patient is found to have a hemoglobin of 3.7 and hematocrit 13.1.'s were going to admit the patient. Patient is getting 3 unit of packed red blood cells Past History Past Medical History: anemia, hypertension, other (Heart palpitation) Past Surgical History: Other ( x2) Social history: smoking Family history: hypertension Medications and Allergies Allergies Allergy/AdvReac Type Severity Reaction Status Date / Time No Known Allergies Allergy Verified 08/06/15 06:23 Home Medications Medication Instructions Recorded Confirmed Last Taken Type Albuterol Sulfate [Albuterol 0.63% 0.63 mg IH TID PRN #1 box 11/04/15 Unknown Rx NEBS] Azithromycin [Zithromax Z-CECILIA] 250 mg PO DAILY #6 tablet 11/04/15 Unknown Rx Benzonatate [Tessalon Perles] 100 mg PO Q8HR #15 capsule 11/04/15 Unknown Rx Amoxicillin [Amoxicillin TAB] 875 mg PO BID #20 tablet 01/01/16 Unknown Rx Fluticasone [Flonase] 1 spray NS QDAY #1 bottle 01/01/16 Unknown Rx predniSONE [Deltasone] 50 mg PO QAM #5 tablet 01/01/16 Unknown Rx Cyclobenzaprine [Flexeril] 10 mg PO TID PRN #30 tablet 03/19/16 Unknown Rx Ibuprofen [Motrin] 800 mg PO Q8HR PRN #30 tablet 03/19/16 Unknown Rx Acetaminophen/Codeine [Tylenol 1 tab PO Q6H PRN #10 tab 08/22/17 Unknown Rx /Codeine # 3 tab] Amoxicillin [Trimox CAP] 500 mg PO Q8H #30 capsule 08/22/17 Unknown Rx Benzocaine [Orajel Liquid 20%] 1 ml MM Q6HR PRN #1 bottle 08/22/17 Unknown Rx Chlorhexidine Mouthwash [Peridex] 15 ml MM BID #1 bottle 08/22/17 Unknown Rx Erythromycin [Erythromycin Ophth 1 applic OP QID #1 tube 08/22/17 Unknown Rx Oint] Ibuprofen [Motrin] 800 mg PO Q8HR PRN #25 tablet 08/22/17 Unknown Rx Naproxen [Naprosyn] 500 mg PO BID #14 tablet 08/25/17 Unknown Rx Review of Systems All systems: negative Constitutional: fatigue, weakness, malaise, other (Headache, shortness of breath, heavy menstrual bleeding) Exam - Constitutional Vitals: Temp Pulse Resp BP Pulse Ox 99.5 F 82 9 L 130/83 100 10/25/21 22:02 10/25/21 23:10 10/25/21 23:10 10/25/21 23:10 10/25/21 23:10 General appearance: Present: no acute distress, well-nourished - EENT Eyes: Present: PERRL ENT: hearing intact, clear oral mucosa - Neck Neck: Present: supple, normal ROM - Respiratory Respiratory effort: normal Respiratory: bilateral: CTA - Cardiovascular Heart Sounds: Present: S1 & S2. Absent: rub, click - Extremities Extremities: pulses symmetrical, No edema Peripheral Pulses: within normal limits - Abdominal General gastrointestinal: Present: soft, non-tender, non-distended, normal bowel sounds Female genitourinary: Present: normal - Integumentary Integumentary: Present: clear, warm, dry - Musculoskeletal Musculoskeletal: gait normal, strength equal bilaterally - Psychiatric Psychiatric: appropriate mood/affect, intact judgment & insight - Neurologic Neurologic: CNII-XII intact, moves all extremities Results - Labs CBC & Chem 7: 10/25/21 14:46 10/25/21 14:46 Labs: Laboratory Last Values WBC 7.5 K/mm3 (4.5-11.0) 10/25/21 14:46 RBC 2.09 M/mm3 (3.65-5.03) L 10/25/21 14:46 Hgb 3.7 gm/dl (10.1-14.3) L* 10/25/21 14:46 Hct 13.1 % (30.3-42.9) L* 10/25/21 14:46 MCV 63 fl (79-97) L 10/25/21 14:46 MCH 18 pg (28-32) L 10/25/21 14:46 MCHC 28 % (30-34) L 10/25/21 14:46 RDW 25.3 % (13.2-15.2) H 10/25/21 14:46 Plt Count 316 K/mm3 (140-440) 10/25/21 14:46 Add Manual Diff Complete 10/25/21 14:46 Total Counted 100 10/25/21 14:46 Seg Neuts % (Manual) 71.0 % (40.0-70.0) H 10/25/21 14:46 Band Neutrophils % 0 % 10/25/21 14:46 Lymphocytes % (Manual) 28.0 % (13.4-35.0) 10/25/21 14:46 Reactive Lymphs % (Man) 0 % 10/25/21 14:46 Monocytes % (Manual) 1.0 % (0.0-7.3) 10/25/21 14:46 Eosinophils % (Manual) 0 % (0.0-4.3) 10/25/21 14:46 Basophils % (Manual) 0 % (0.0-1.8) 10/25/21 14:46 Metamyelocytes % 0 % 10/25/21 14:46 Myelocytes % 0 % 10/25/21 14:46 Promyelocytes % 0 % 10/25/21 14:46 Blast Cells % 0 % 10/25/21 14:46 Nucleated RBC % Not Reportable 10/25/21 14:46 Seg Neutrophils # Man 5.3 K/mm3 (1.8-7.7) 10/25/21 14:46 Band Neutrophils # 0.0 K/mm3 10/25/21 14:46 Lymphocytes # (Manual) 2.1 K/mm3 (1.2-5.4) 10/25/21 14:46 Abs React Lymphs (Man) 0.0 K/mm3 10/25/21 14:46 Monocytes # (Manual) 0.1 K/mm3 (0.0-0.8) 10/25/21 14:46 Eosinophils # (Manual) 0.0 K/mm3 (0.0-0.4) 10/25/21 14:46 Basophils # (Manual) 0.0 K/mm3 (0.0-0.1) 10/25/21 14:46 Metamyelocytes # 0.0 K/mm3 10/25/21 14:46 Myelocytes # 0.0 K/mm3 10/25/21 14:46 Promyelocytes # 0.0 K/mm3 10/25/21 14:46 Blast Cells # 0.0 K/mm3 10/25/21 14:46 WBC Morphology Not Reportable 10/25/21 14:46 Hypersegmented Neuts Not Reportable 10/25/21 14:46 Hyposegmented Neuts Not Reportable 10/25/21 14:46 Hypogranular Neuts Not Reportable 10/25/21 14:46 Smudge Cells Not Reportable 10/25/21 14:46 Toxic Granulation Not Reportable 10/25/21 14:46 Toxic Vacuolation Not Reportable 10/25/21 14:46 Dohle Bodies Not Reportable 10/25/21 14:46 Pelger-Huet Anomaly Not Reportable 10/25/21 14:46 Juan Pablo Rods Not Reportable 10/25/21 14:46 Platelet Estimate Consistent w auto 10/25/21 14:46 Clumped Platelets Not Reportable 10/25/21 14:46 Plt Clumps, EDTA Not Reportable 10/25/21 14:46 Large Platelets Not Reportable 10/25/21 14:46 Giant Platelets Not Reportable 10/25/21 14:46 Platelet Satelliting Not Reportable 10/25/21 14:46 Plt Morphology Comment Not Reportable 10/25/21 14:46 RBC Morphology Not Reportable 10/25/21 14:46 Dimorphic RBCs Not Reportable 10/25/21 14:46 Polychromasia Few 10/25/21 14:46 Hypochromasia 3+ 10/25/21 14:46 Poikilocytosis Not Reportable 10/25/21 14:46 Anisocytosis Not Reportable 10/25/21 14:46 Microcytosis Not Reportable 10/25/21 14:46 Macrocytosis Not Reportable 10/25/21 14:46 Spherocytes Not Reportable 10/25/21 14:46 Pappenheimer Bodies Not Reportable 10/25/21 14:46 Sickle Cells Not Reportable 10/25/21 14:46 Target Cells Not Reportable 10/25/21 14:46 Tear Drop Cells Few 10/25/21 14:46 Ovalocytes Not Reportable 10/25/21 14:46 Helmet Cells Not Reportable 10/25/21 14:46 [place] Bodies Not Reportable 10/25/21 14:46 [place] Rings Not Reportable 10/25/21 14:46 Ely Cells Not Reportable 10/25/21 14:46 Bite Cells Not Reportable 10/25/21 14:46 Crenated Cell Not Reportable 10/25/21 14:46 Elliptocytes Few 10/25/21 14:46 Acanthocytes (Spur) Not Reportable 10/25/21 14:46 Rouleaux Not Reportable 10/25/21 14:46 Hemoglobin C Crystals Not Reportable 10/25/21 14:46 Schistocytes Not Reportable 10/25/21 14:46 Malaria parasites Not Reportable 10/25/21 14:46 Kevin Bodies Not Reportable 10/25/21 14:46 Hem Pathologist Commnt No 10/25/21 14:46 Sodium 137 mmol/L (137-145) 10/25/21 14:46 Potassium 3.9 mmol/L (3.6-5.0) 10/25/21 14:46 Chloride 103.7 mmol/L (98-107) 10/25/21 14:46 Carbon Dioxide 21 mmol/L (22-30) L 10/25/21 14:46 Anion Gap 16 mmol/L 10/25/21 14:46 BUN 8 mg/dL (7-17) 10/25/21 14:46 Creatinine 0.5 mg/dL (0.6-1.2) L 10/25/21 14:46 Estimated GFR > 60 ml/min 10/25/21 14:46 BUN/Creatinine Ratio 16 % 10/25/21 14:46 Glucose 100 mg/dL (65-100) 10/25/21 14:46 Calcium 9.1 mg/dL (8.4-10.2) 10/25/21 14:46 TSH 1.040 mlU/mL (0.270-4.200) 10/25/21 14:46 Free T4 1.11 ng/dL (0.76-1.46) 10/25/21 14:46 Blood Type O NEGATIVE 10/25/21 17:08 Antibody Screen Negative 10/25/21 17:08 Crossmatch See Detail 10/25/21 17:08 Assessment and Plan VTE prophylaxis?: Mechanical Plan of care discussed with patient/family: Yes - Patient Problems (1) Severe anemia Current Visit: Yes Status: Acute Plan to address problem: Admit the patient to the medical floor. Severe anemia secondary to heavy menstrual bleeding. Patient is getting 3 units of packed red blood cell. Recheck CBC in the morning. Transfuse if necessary. Consult SPEECH LANGUAGE PATHOLOGY ASSISTANT if needed (2) Hypertension Current Visit: Yes Status: Acute Plan to address problem: Hydralazine 10 mg IV every 6 hours as needed. We continue the home medication (3) Menorrhagia Current Visit: Yes Status: Acute Plan to address problem: Patient is getting 3 units of packed red blood cell. Recheck CBC in the morn ing. Transfuse if necessary. Consult SPEECH LANGUAGE PATHOLOGY ASSISTANT if needed (4) Generalized muscle weakness Current Visit: Yes Status: Acute Plan to address problem: Generalized muscle weakness secondary to severe anemia.Patient is getting 3 units of packed red blood cell. Recheck CBC in the morning. Transfuse if necessary. Consult SPEECH LANGUAGE PATHOLOGY ASSISTANT if needed (5) DVT prophylaxis Current Visit: Yes Status: Acute Plan to address problem: SCD for DVT prophylaxis. Pepcid 20 mg IV every 12 hours for GI prophylaxis. Patient is a full code
[2021-10-26] MEDS: IPRATROPIUM/ALBUTEROL SULFATE 3 ML AMPUL.NEB IH SCH ×2 (01:55→08:44)
[2021-10-26] MEDS ORDERED: BENZONATATE 100 MG CAP PO SCH (06:00)
[2021-10-26 06:19] LABS: Mean Corpuscular HGB Conc 30 % (30-34); Mean Corpuscular Volume 71 fl (79-97); Platelet Count 277 K/mm3 (140-440); Red Blood Count 2.76 M/mm3 (3.65-5.03)
[2021-10-26 06:23] LABS: Hemoglobin 5.9 gm/dl (10.1-14.3)
[2021-10-26 06:24] LABS: Hematocrit 19.5 % (30.3-42.9); Red Cell Distribution Width 27.6 % (13.2-15.2)
[2021-10-26 06:26] LABS: Blood Urea Nitrogen 9 mg/dL (7-17); Calcium 8.8 mg/dL (8.4-10.2); Hemolysis Index 2
[2021-10-26] MEDS ORDERED: SODIUM CHLORIDE 0.9% 500 ML 500 ML IV ONE ×2 (06:27→20:46)
[2021-10-26 06:36] LABS: BUN/Creatinine Ratio 15
[2021-10-26 07:27] LABS: Anisocytosis 1+; Basophils % (Manual) 0 % (0.0-1.8); Total Cells Counted 100
[2021-10-26 07:28] LABS: Hypochromasia 1+; Platelet Estimate Consistent w Auto
[2021-10-26] MEDS: FAMOTIDINE 20 MG TAB PO SCH ×3 (08:26→22:26)
[2021-10-26] MEDS: ACETAMINOPHEN 325 MG TAB PO PRN ×3 (08:26→23:10)
--- NOTE | 2021-10-26 09:35 | Electrocardiograph Report ---
[facility] Test Date: 2021-10-25 Test Time: 20:35:25 Pat Name: CALLI BREWER Department: Room: A367 1 Gender: F [employer] Architect: RAMÓN : 1985 Requested By: GIORGIO BEAUCHAMP Order Number: [id number] Reading MD: Alberto Ross Measurements Intervals [place] Rate: 90 P: 75 MI: 170 QRS: 39 QRSD: 80 T: -28 QT: 353 QTc: 433 Interpretive Statements Sinus rhythm Probable left atrial enlargement Borderline T abnormalities, diffuse leads No previous ECG available for comparison Electronically Signed On 10-26-2021 9:35:08 EDT by Alberto Ross
[2021-10-26] MEDS ORDERED: predniSONE 50 MG TAB PO SCH (10:00)
[2021-10-26] MEDS ORDERED: AZITHROMYCIN 250 MG TAB PO NR (10:00)
[2021-10-26] MEDS ORDERED: CHLORHEXIDINE MOUTHWASH 473ML MM SCH (10:00)
[2021-10-26] MEDS: FLUTICASONE PROPIONATE NASAL SPRAY 16 GM NS SCH (12:29)
[2021-10-26] MEDS ORDERED: SODIUM CHLORIDE 0.9% 500 ML 500 ML IV NR (13:00)
--- NOTE | 2021-10-26 20:45 | Progress Note ---
Assessment and Plan - Patient Problems (1) Symptomatic anemia Current Visit: No Status: Acute Plan to address problem: Repeat packed red blood cell transfusion. Discharge planning in a.m. (2) Menorrhagia Current Visit: Yes Status: Acute Plan to address problem: Outpatient [facility] follow-up. (3) DVT prophylaxis Current Visit: Yes Status: Acute Plan to address problem: SCD to bilateral lower extremities while in bed (4) Iron deficiency anemia Current Visit: Yes Status: Acute Qualifiers: Iron deficiency anemia type: chronic blood loss Qualified Code(s): D50.0 - Iron deficiency anemia secondary to blood loss (chronic) Plan to address problem: Iron replacement therapy. (5) Advance care planning Current Visit: Yes Status: Acute Plan to address problem: Disease education done, care plan discussed, diagnoses discussed, prognosis discussed, patient is full code. Patient acknowledges understanding and agreem ent with care plan, +30 minutes. (6) Preventative health care Current Visit: Yes Status: Acute Plan to address problem: Patient counseled regarding safe driving, iron replacement therapy, medication compliance, outpatient follow-up with [facility]A ARCHITECT for management of uterine fibroid, outpatient follow-up with primary care physician for all age and risk factor appropriate screening test, +30 minutes. History Interval history: 36 YO [place]am[place] with symptomatic anemia, menorrhagia. Patient knowledges continued generalized weakness. Will repeat packed red blood cell transfusion today. No reported nursing events. Patient denies pain. Discharge planning in a.m. Hospitalist Physical - Constitutional Vitals: Temp Pulse Resp BP Pulse Ox 98.4 F 71 16 120/74 100 10/26/21 17:24 10/26/21 17:24 10/26/21 17:24 10/26/21 17:24 10/26/21 12:30 General appearance: Present: no acute distress, well-nourished - EENT Eyes: Present: PERRL (Conjunctival pallor) ENT: hearing intact - Neck Neck: Present: supple - Respiratory Respiratory effort: normal Respiratory: bilateral: CTA - Cardiovascular Rhythm: regular Heart Sounds: Present: S1 & S2 - Extremities Extremities: no ischemia Peripheral Pulses: within normal limits - Abdominal General gastrointestinal: soft, non-tender, non-distended - Integumentary Integumentary: Present: clear, dry - Psychiatric Psychiatric: cooperative - Neurologic Neurologic: CNII-XII intact Results - Labs CBC & Chem 7: 10/26/21 05:36 10/26/21 05:36 Labs: Laboratory Last Values WBC 6.2 K/mm3 (4.5-11.0) 10/26/21 05:36 RBC 2.76 M/mm3 (3.65-5.03) L 10/26/21 05:36 Hgb 5.9 gm/dl (10.1-14.3) L* 10/26/21 05:36 Hct 19.5 % (30.3-42.9) L* D 10/26/21 05:36 MCV 71 fl (79-97) L 10/26/21 05:36 MCH 21 pg (28-32) L 10/26/21 05:36 MCHC 30 % (30-34) 10/26/21 05:36 RDW 27.6 % (13.2-15.2) H 10/26/21 05:36 Plt Count 277 K/mm3 (140-440) 10/26/21 05:36 Add Manual Diff Complete 10/26/21 05:36 Total Counted 100 10/26/21 05:36 Seg Neuts % (Manual) 63.0 % (40.0-70.0) 10/26/21 05:36 Band Neutrophils % 0 % 10/26/21 05:36 Lymphocytes % (Manual) 32.0 % (13.4-35.0) 10/26/21 05:36 Reactive Lymphs % (Man) 0 % 10/26/21 05:36 Monocytes % (Manual) 3.0 % (0.0-7.3) 10/26/21 05:36 Eosinophils % (Manual) 2.0 % (0.0-4.3) 10/26/21 05:36 Basophils % (Manual) 0 % (0.0-1.8) 10/26/21 05:36 Metamyelocytes % 0 % 10/26/21 05:36 Myelocytes % 0 % 10/26/21 05:36 Promyelocytes % 0 % 10/26/21 05:36 Blast Cells % 0 % 10/26/21 05:36 Nucleated RBC % Not Reportable 10/26/21 05:36 Seg Neutrophils # Man 3.9 K/mm3 (1.8-7.7) 10/26/21 05:36 Band Neutrophils # 0.0 K/mm3 10/26/21 05:36 Lymphocytes # (Manual) 2.0 K/mm3 (1.2-5.4) 10/26/21 05:36 Abs React Lymphs (Man) 0.0 K/mm3 10/26/21 05:36 Monocytes # (Manual) 0.2 K/mm3 (0.0-0.8) 10/26/21 05:36 Eosinophils # (Manual) 0.1 K/mm3 (0.0-0.4) 10/26/21 05:36 Basophils # (Manual) 0.0 K/mm3 (0.0-0.1) 10/26/21 05:36 Metamyelocytes # 0.0 K/mm3 10/26/21 05:36 Myelocytes # 0.0 K/mm3 10/26/21 05:36 Promyelocytes # 0.0 K/mm3 10/26/21 05:36 Blast Cells # 0.0 K/mm3 10/26/21 05:36 WBC Morphology Not Reportable 10/26/21 05:36 Hypersegmented Neuts Not Reportable 10/26/21 05:36 Hyposegmented Neuts Not Reportable 10/26/21 05:36 Hypogranular Neuts Not Reportable 10/26/21 05:36 Smudge Cells Not Reportable 10/26/21 05:36 Toxic Granulation Not Reportable 10/26/21 05:36 Toxic Vacuolation Not Reportable 10/26/21 05:36 Dohle Bodies Not Reportable 10/26/21 05:36 Pelger-Huet Anomaly Not Reportable 10/26/21 05:36 Juan Pablo Rods Not Reportable 10/26/21 05:36 Platelet Estimate Consistent w auto 10/26/21 05:36 Clumped Platelets Not Reportable 10/26/21 05:36 Plt Clumps, EDTA Not Reportable 10/26/21 05:36 Large Platelets Not Reportable 10/26/21 05:36 Giant Platelets Not Reportable 10/26/21 05:36 Platelet Satelliting Not Reportable 10/26/21 05:36 Plt Morphology Comment Not Reportable 10/26/21 05:36 RBC Morphology Not Reportable 10/26/21 05:36 Dimorphic RBCs Not Reportable 10/26/21 05:36 Polychromasia Not Reportable 10/26/21 05:36 Hypochromasia 1+ 10/26/21 05:36 Poikilocytosis Not Reportable 10/26/21 05:36 Anisocytosis 1+ 10/26/21 05:36 Microcytosis Not Reportable 10/26/21 05:36 Macrocytosis Not Reportable 10/26/21 05:36 Spherocytes Not Reportable 10/26/21 05:36 Pappenheimer Bodies Not Reportable 10/26/21 05:36 Sickle Cells Not Reportable 10/26/21 05:36 Target Cells Not Reportable 10/26/21 05:36 Tear Drop Cells Not Reportable 10/26/21 05:36 Ovalocytes Not Reportable 10/26/21 05:36 Helmet Cells Not Reportable 10/26/21 05:36 Rodriguez-Craig Bodies Not Reportable 10/26/21 05:36 Dresden Rings Not Reportable 10/26/21 05:36 Orange Cells Not Reportable 10/26/21 05:36 Bite Cells Not Reportable 10/26/21 05:36 Crenated Cell Not Reportable 10/26/21 05:36 Elliptocytes Not Reportable 10/26/21 05:36 Acanthocytes (Spur) Not Reportable 10/26/21 05:36 Rouleaux Not Reportable 10/26/21 05:36 Hemoglobin C Crystals Not Reportable 10/26/21 05:36 Schistocytes Not Reportable 10/26/21 05:36 Malaria parasites Not Reportable 10/26/21 05:36 Kevin Bodies Not Reportable 10/26/21 05:36 Hem Pathologist Commnt No 10/26/21 05:36 Sodium 138 mmol/L (137-145) 10/26/21 05:36 Potassium 4.2 mmol/L (3.6-5.0) 10/26/21 05:36 Chloride 106.5 mmol/L (98-107) 10/26/21 05:36 Carbon Dioxide 22 mmol/L (22-30) 10/26/21 05:36 Anion Gap 14 mmol/L 10/26/21 05:36 BUN 9 mg/dL (7-17) 10/26/21 05:36 Creatinine 0.6 mg/dL (0.6-1.2) 10/26/21 05:36 Estimated GFR > 60 ml/min 10/26/21 05:36 BUN/Creatinine Ratio 15 % 10/26/21 05:36 Glucose 102 mg/dL (65-100) H 10/26/21 05:36 Calcium 8.8 mg/dL (8.4-10.2) 10/26/21 05:36 TSH 1.040 mlU/mL (0.270-4.200) 10/25/21 14:46 Free T4 1.11 ng/dL (0.76-1.46) 10/25/21 14:46 Blood Type O NEGATIVE 10/25/21 17:08 Antibody Screen Negative 10/25/21 17:08 Crossmatch See Detail 10/25/21 17:08 Palomares/IV: Voiding Method Toilet Active Medications - Current Medications Current Medications: Generic Name Dose Route Start Last Admin Trade Name Freq PRN Reason Stop Dose Admin Acetaminophen 650 mg 10/25/21 23:33 10/26/21 12:36 Acetaminophen 325 Mg Tab PO 650 mg Q4H PRN Administration Pain MILD(1-3)/Fever >100.5/VALLE Albuterol 2.5 mg 10/25/21 23:33 Albuterol 2.5 Mg/3 Ml Nebu IH Q3HRT PRN Shortness Of Breath Famotidine 20 mg 10/26/21 10:00 10/26/21 12:30 Famotidine 20 Mg Tab PO Not Given BID TONJA Fluticasone Propionate 50 mcg 10/26/21 10:00 10/26/21 12:29 Fluticasone Propionate Nasal Gwynn 16 Gm NS 50 mcg QDAY TONJA Administration Sodium Chloride 500 mls @ 0 mls/hr 10/26/21 13:00 Nacl 0.9% 500 Ml IV 10/27/21 12:59 ONCE NR As Directed Morphine Sulfate 2 mg 10/25/21 23:33 Morphine 2 Mg/1 Ml Inj IV Q4H PRN Pain, Moderate (4-6) Morphine Sulfate 4 mg 10/25/21 23:33 Morphine 4 Mg/1 Ml Inj IV Q4H PRN Pain , Severe (7-10) Ondansetron HCl 4 mg 10/25/21 23:33 Ondansetron 4 Mg/2 Ml Inj IV Q8H PRN Nausea And Vomiting Sodium Chloride 10 ml 10/26/21 10:00 10/26/21 12:30 Sodium Chloride 0.9% 10 Ml Flush Syringe IV 10 ml BID TONJA Administration Sodium Chloride 10 ml 10/25/21 23:33 Sodium Chloride 0.9% 10 Ml Flush Syringe IV PRN PRN LINE FLUSH
[2021-10-27] MEDS ORDERED: diphenhydrAMINE 50 MG/ML VIAL IV ONE (02:12)
[2021-10-27 08:17] LABS: Hematocrit 26.2 % (30.3-42.9); Hemoglobin 8.4 gm/dl (10.1-14.3)
[2021-10-27] MEDS: FAMOTIDINE 20 MG TAB PO SCH (09:14)
[2021-10-27] MEDS: FERROUS SULFATE 325 MG TAB PO SCH ×2 (09:14→16:24)
[2021-10-27] MEDS: ACETAMINOPHEN 325 MG TAB PO PRN (09:17)
[2021-10-27] MEDS ORDERED: AZITHROMYCIN 250 MG TAB PO SCH (10:00)
--- NOTE | 2021-10-27 11:22 | Discharge Summary ---
Providers - Providers Date of Admission: 10/25/21 23:34 Date of discharge: 10/27/21 Attending physician: SILVIO VALDEZ Primary care physician: MARVEL JEAN Hospitalization Reason for admission: Symptomatic anemia Condition: Stable Hospital course: 36-year-old female with 3 miscarriage with h/o bleeding fibroid who present with generalized muscle weakness for the last 2 weeks progressively getting worse. She also reports some from headache as well. She noted starting her heavy menstrual bleeding 3 days ago. She also have history of chronic anemia. No visual changes reported. No fever or chills or any chest pain or palpitation. However walking from one block to the other worsen her fatigue. In the emergency room, patient was found to have a hemoglobin of 3.7 and hematocrit 13.1.'s were going to admit the patient. The patient was admitted with diagnosis of severe symptomatic anemia, menorrhagia, iron deficiency anemia and received a total of 4 units PRBCs. The patient had stabilization of H&H. Patient will follow-up with [facility] as an outpatient. Patient continued to complain of headache and will receive CT scan of the head for further evaluation. Etiology is likely secondary to anemia. If CT is negative patient will discharge home and is to follow-up with PCP as well Disposition: 01 HOME / SELF CARE / HOMELESS Final Discharge Diagnosis (Prints w/discharge instructions): severe symptomatic anemia, menorrhagia, iron deficiency anemia Core Measure Documentation - Palliative Care Palliative Care/ Comfort Measures: Not Applicable - Core Measures Any of the following diagnoses?: none Exam - Constitutional Vitals: Temp Pulse Resp BP Pulse Ox 98.6 F 74 18 129/74 91 10/27/21 06:30 10/27/21 06:30 10/27/21 06:30 10/27/21 06:30 10/27/21 10:00 General appearance: Present: no acute distress, well-nourished - EENT Eyes: Present: PERRL ENT: hearing intact, clear oral mucosa - Neck Neck: Present: supple, normal ROM - Respiratory Respiratory effort: normal Respiratory: bilateral: CTA - Cardiovascular Heart Sounds: Present: S1 & S2. Absent: rub, click - Extremities Extremities: pulses symmetrical, No edema Peripheral Pulses: within normal limits - Abdominal General gastrointestinal: Present: soft, non-tender, non-distended, normal bowel sounds Female genitourinary: Present: normal - Integumentary Integumentary: Present: clear, warm, dry - Musculoskeletal Musculoskeletal: gait normal, strength equal bilaterally - Psychiatric Psychiatric: appropriate mood/affect, intact judgment & insight - Neurologic Neurologic: CNII-XII intact, moves all extremities Plan Activity: advance as tolerated Weight Bearing Status: Weight Bear as Tolerated Diet: regular Follow up with: MARVEL JEAN MD [Primary Care Provider] - 3-5 Days
[2021-10-27] MEDS: FLUTICASONE PROPIONATE NASAL SPRAY 16 GM NS SCH (11:49)
[2021-10-27 14:19] VITALS: BP 117/72
--- NOTE | 2021-10-27 14:19 | Cat Scan Report ---
CT HEAD WITHOUT CONTRAST INDICATION / CLINICAL INFORMATION: headache. TECHNIQUE: All CT scans at this location are performed using CT dose reduction for ALARA by means of automated exposure control. COMPARISON: None available. FINDINGS: BRAIN PARENCHYMA: No acute intracranial hemorrhage. No evidence of recent infarct. No mass effect or midline shift. VENTRICULAR SYSTEM/EXTRA-AXIAL SPACES: Ventricles are normal for age. No extra-axial fluid collection . ORBITS: Normal as visualized. SKELETAL SYSTEM/SOFT TISSUES: Normal bones and soft tissues. PARANASAL SINUSES/MASTOID AIR CELLS: No significant abnormality. ADDITIONAL FINDINGS: None. IMPRESSION: 1. No acute intracranial abnormality. Signer Name: Magdiel Garcia MD Signed: 10/27/2021 2:15 PM Workstation Name: [id number]
--- NOTE | 2021-10-29 18:50 | Electrocardiograph Report ---
[facility] Test Date: 2021-10-27 Test Time: 02:58:34 Pat Name: CALLI BREWER Department: Room: A367 1 Gender: F Assistant Vice President: Fernie : 1985 Requested By: PAUL GUERRERO Order Number: [id number] Reading MD: Patrick Morales Measurements Intervals Warner Rate: 57 P: 39 AR: 183 QRS: 41 QRSD: 81 T: -5 QT: 421 QTc: 412 Interpretive Statements Sinus bradycardia Compared to ECG 10/25/2021 20:35:25 Sinus rate has slowed Electronically Signed On 10-29-2021 18:50:34 EDT by Patrick Morales
== END 2021-10-27 17:15 | disposition home or self-care (01) | DRG 761 ==
LOC: ED 13:14 → 3A 23:34
PROVIDERS: ADMIT Hospitalist; ATTEND Hospitalist
PROC: 30233N1 Transfusion of Nonautologous Red Blood Cells into Peripheral Vein, Percutaneous Approach (ICD-10-PCS; principal; 2021-10-25)
DX: N92.0 Excessive and frequent menstruation with regular cycle (principal); I10 Essential (primary) hypertension; F17.200 Nicotine dependence, unspecified, uncomplicated; Z82.49 Family history of ischemic heart disease and other diseases of the circulatory system; D50.0 Iron deficiency anemia secondary to blood loss (chronic)
CPT/HCPCS: 36415; 70450; 80048; 84439; 84443; 85007; 85014; 85018; 85025; 86850; 86900; 86901; 86920; 93005; 94760; G0378; J1200; J7030; J7040; P9016

== ENCOUNTER 2021-12-27 16:48 | Emergency (ER) | payer MEDICAID ==
[2021-12-27 17:33] LABS: Mean Corpuscular HGB Conc 28 % (30-34); Mean Corpuscular Volume 71 fl (79-97); Platelet Count 631 K/mm3 (140-440); Red Blood Count 2.39 M/mm3 (3.65-5.03)
[2021-12-27 17:53] LABS: Alanine Aminotransferase 6 units/L (7-56); Albumin 3.8 g/dL (3.9-5); Blood Urea Nitrogen 8 mg/dL (7-17); Calcium 8.9 mg/dL (8.4-10.2); Hemolysis Index 0
[2021-12-27 17:55] LABS: BUN/Creatinine Ratio 16
[2021-12-27 18:14] LABS: Hematocrit 16.9 % (30.3-42.9); Hemoglobin 4.6 gm/dl (10.1-14.3)
[2021-12-27 18:22] LABS: INR 0.89 (0.87-1.13)
[2021-12-27 18:23] LABS: Partial Thromboplastin Time 30.6 Sec. (24.2-36.6)
[2021-12-27 19:29] LABS: Basophils % (Manual) 0 % (0.0-1.8); Monocytes % (Manual) 0 % (0.0-7.3); Total Cells Counted 100
[2021-12-27 19:30] LABS: Hypochromasia 2+
[2021-12-27 19:31] LABS: Platelet Estimate Consistent w Auto
[2021-12-27] MEDS ORDERED: SODIUM CHLORIDE 0.9% 500 ML 500 ML IV ONE ×2 (22:18→23:49)
--- NOTE | 2021-12-27 22:51 | Emergency Department Report ---
HPI - General Chief Complaint: Dyspnea/Respdistress PUI?: No Time Seen by Provider: 12/27/21 22:08 - HPI HPI: 36yo F w/hx of uterine fibroids, prior hx of admission secondary to severe anemia in the setting of bleeding uterine fibroids, p/w fatigue, weakness, headache, and tooth pain. Patient reports her last menstrual period was supposed to have stopped 1 week ago but she is having persistent mild bleeding. She reports mild lower abdominal cramping. Patient states her FACILITIES PAINTER doctor was supposed to see her after her last admission here for severe symptomatic anemia in October but that the appointment "was pushed to March." Pt states "im here to get tranfused blood." She also c/o R sided dental pain and headache. She denies difficulty swallowing her oral secretions, neck pain/stiffness, fevers/chills. She has taken ibuprofen at home as needed for headache. Pain currently 4 out of 10. ED Past Medical Hx - Past Medical History Previous Medical History?: Yes Hx Hypertension: Yes ( induced) Additional medical history: anemia, heart palpitations, fibroids - Surgical History Additional Surgical History: X2 - Social History Smoking Status: Never Smoker - Medications Home Medications: Home Medications Medication Instructions Recorded Confirmed Last Taken Type Acetaminophen [Non-Aspirin Extra 500 mg PO QPM PRN 10/26/21 10/26/21 1 Week Ago History Strength] ~10/19/21 Ferrous Sulfate [Iron 325 MG] 325 mg PO TID 10/26/21 10/26/21 2 Weeks Ago Hist ory ~10/12/21 Ibuprofen [Ibuprofen Ib] 200 mg PO QAM PRN 10/26/21 10/26/21 1 Week Ago History ~10/19/21 Penicillin Vk [Veetids TAB] 500 mg PO QID 7 Days #56 12/28/21 Unknown Rx ED Review of Systems ROS: Stated complaint: ANEMIA/TOOTHACHE Other details as noted in HPI Comment: All other systems reviewed and negative Physical Exam - Physical Exam Vital Signs: Vital Signs 12/27/21 12/27/21 17:03 22:02 Temperature 98.4 F Pulse Rate 91 H Respiratory 18 23 Rate Blood Pressure 133/74 O2 Sat by Pulse 100 96 Oximetry General: Gen: pt is well appearing, no acute distress, typing on personal cellular telephone, comfortable appearing, no drooling no stridor no respiratory distress, breathing unlabored, HEENT: Normocephalic atraumatic pupils equally round and reactive to light extraocular muscles intact sclera anicteric Neck: Full range of motion, no midline spinal tenderness palpation, no JVD, no carotid bruits, no nuchal rigidity CVS: S1-S2 regular rate and rhythm with no gallops rubs or murmurs, chest wall nontender Pulmonary: Clear to auscultation bilaterally, no wheezes rales or rhonchi Abdomen: Soft nondistended nontender no guarding or rebound tenderness, no palpable deformities or step-offs, normal active bowel sounds, no hepatosplenomegaly, no pulsatile masses : Deferred Extremities: No cyanosis no clubbing no edema, intact distal peripheral pulses, Integumentary: Skin normal, no petechia no purpura no abscess no lacerations no evidence of trauma no evidence of infection Neuro: Patient is awake alert and oriented to person place time situation, mentating well, cranial nerves II through XII intact, no focal neurodeficits, sensation grossly tact Psych: Calm cooperative, mood affect normal ED Course Vital Signs 12/27/21 12/27/21 17:03 22:02 Temperature 98.4 F Pulse Rate 91 H Respiratory 18 23 Rate Blood Pressure 133/74 O2 Sat by Pulse 100 96 Oximetry - Reevaluation(s) Reevaluation #1: 12/27/21 22:45 Per extensive discussion with the pt, she is refusing admission, stating she has 2 children and has no one to watch them overnight. She requests to be given blood via transfusion of PRBC before signing out against medical advice. Pt informed that I had spoken with Dr. Hendrickson and he had agreed to accept her to the hospitalist service for admission and continued transfusion of prbc. Pt however, refuses admission. 12/27/21 22:46 ED Medical Decision Making - Lab Data Result diagrams: 12/28/21 13:37 12/27/21 17:18 - Medical Decision Making 36yo F w/hx of degenerating uterine fibroids, symptomatic anemia, prior admission for transfusion of packed red blood cell, -induced hypertension, presents for evaluation of symptomatic anemia as well as right- sided dental pain. Vital stable. Patient has a hemoglobin of 4.6 and hematocrit of 16. Pt refused admission and will plan to leave AMA. She was transfused 2U of PRBC and agreed to remain for repeat Hb/hct. Pt refused admission and will plan to leave AMA. Critical care attestation.: If time is entered above; I have spent that time in minutes in the direct care of this critically ill patient, excluding procedure time. ED Disposition Clinical Impression: Symptomatic anemia, Pain, dental, Menorrhagia, Fibroid uterus Disposition: 07 LEFT AGAINST MEDICAL ADVICE Is pt being admited?: No Does the pt Need Aspirin: No Condition: Serious Instructions: Blood Transfusion, Adult, [id number], Uterine Fibroids, [id number] Additional Instructions: Continue your iron tablets. Telephone your retouching operator today to schedule an immediate follow up appointment for reassessment. This is very important. You may also follow-up with the FACILITIES PAINTER doctor provided Contact your dentist to see if you can be given a sooner follow up appointment. Your dental pain may not be due to an infection and it may be due to nerve pain. Return to the nearest emergency department as soon as possible if you develop worsening shortness of breath, dizziness, vomiting, loss of consciousness, or if any other new worrisome symptoms develop. Prescriptions: Penicillin Vk [Veetids TAB] 500 mg PO QID 7 Days #56 Referrals: MALAIKA CEDILLO MD [Staff Physician] - 3-5 Days RENETTA CABRERA MD [Primary Care Provider] - 3-5 Days Forms: Work/School Release Form(ED)
--- NOTE | 2021-12-28 01:51 | XRay Report ---
CHEST 1 VIEW INDICATION / CLINICAL INFORMATION: pt c/o sob. COMPARISON: Chest x-ray 08/25/2017 FINDINGS: SUPPORT DEVICES: None. HEART / MEDIASTINUM: Heart size is within normal limits. Mediastinal contour demonstrates no signific ant abnormality. LUNGS / PLEURA: Lungs are clear for degree of inspiration and technique utilized. BONES: No significant osseous abnormality. ADDITIONAL FINDINGS: No significant additional findings. IMPRESSION: 1. No active cardiopulmonary disease. Signer Name: Ryan Ospina II, MD Signed: 12/28/2021 1:46 AM Workstation Name: [id number]
[2021-12-28] MEDS ORDERED: IBUPROFEN 800 MG TAB PO ONE (03:55)
[2021-12-28 06:14] LABS: Hematocrit 23.1 % (30.3-42.9); Hemoglobin 6.9 gm/dl (10.1-14.3); Mean Corpuscular HGB Conc 30 % (30-34); Mean Corpuscular Volume 76 fl (79-97); Platelet Count 502 K/mm3 (140-440); Red Blood Count 3.02 M/mm3 (3.65-5.03)
[2021-12-28 06:21] LABS: Red Cell Distribution Width 29.2 % (13.2-15.2)
[2021-12-28 07:04] LABS: Anisocytosis 1+; Basophils % (Manual) 0 % (0.0-1.8); Hypochromasia 1+; Platelet Estimate Consistent w Auto; Total Cells Counted 100
[2021-12-28] MEDS ORDERED: SODIUM CHLORIDE 0.9% 500 ML 500 ML IV ONE (07:31)
--- NOTE | 2021-12-28 07:33 | Emergency Department Report ---
Blank Doc - Documentation Documentation: 36-year-old female with history of uterine fibroids with secondary anemia vannessa banerjee [facility] presents to the hospital last night with anemia requiring blood transfusion. Initial treating provider Dr. Pardo recommended admission for multiple units of blood for initial hemoglobin of 4.7. At time patient declined admission and was prepped to sign out AGAINST MEDICAL ADVICE after 2 units PRBCs. Hemoglobin currently 6.9. Patient states that she was able to find childcare for her children up until 6 PM and can stay in the hospital for treatment during that time. Patient does report feeling "much better. She is also requesting antibiotics for her dental pain. She currently has persistent vaginal spotting but denies heavy bleeding. She states she is taking iron tablets 3 times a day and continues to have significant anemia. Patient is agreeable to receiving 1 more unit of PRBCs with repeat H&H level and will likely be discharged when levels improved. 8:35 am a couple blank because my blood transfusion order placed at 7:31a was canceled. We are unclear as to why this order was rejected and canceled in [facility]. She will arrange for an additional unit of PRBCs and call nurse when it is ready Lab Results 12/27/21 12/27/21 12/27/21 Range/Units 17:18 17:18 17:18 WBC 8.3 (4.5-11.0) K/mm3 RBC 2.39 L (3.65-5.03) M/mm3 Hgb 4.6 L* (10.1-14.3) gm/dl Hct 16.9 L* (30.3-42.9) % MCV 71 L (79-97) fl MCH 19 L (28-32) pg MCHC 28 L (30-34) % RDW 26.0 H (13.2-15.2) % Plt Count 631 H (140-440) K/mm3 Lymph % (Auto) Accounting Office Manager [place] % (Auto) Accounting Office Manager Eos % (Auto) Accounting Office Manager Baso % (Auto) Accounting Office Manager Lymph # (Auto) Accounting Office Manager [place] # (Auto) Accounting Office Manager Eos # (Auto) Accounting Office Manager Baso # (Auto) Accounting Office Manager Add Manual Diff Complete Total Counted 100 Seg Neutrophils % Accounting Office Manager Seg Neuts % (Manual) 91.0 H (40.0-70.0) % Band Neutrophils % 0 % Lymphocytes % (Manual) 8.0 L (13.4-35.0) % Reactive Lymphs % (Man) 0 % Monocytes % (Manual) 0 (0.0-7.3) % Eosinophils % (Manual) 1.0 (0.0-4.3) % Basophils % (Manual) 0 (0.0-1.8) % Metamyelocytes % 0 % Myelocytes % 0 % Promyelocytes % 0 % Blast Cells % 0 % Nucleated RBC % 1.0 H (0.0-0.9) % Seg Neutrophils # Accounting Office Manager Seg Neutrophils # Man 7.6 (1.8-7.7) K/mm3 Band Neutrophils # 0.0 K/mm3 Lymphocytes # (Manual) 0.7 L (1.2-5.4) K/mm3 Abs React Lymphs (Man) 0.0 K/mm3 Monocytes # (Manual) 0.0 (0.0-0.8) K/mm3 Eosinophils # (Manual) 0.1 (0.0-0.4) K/mm3 Basophils # (Manual) 0.0 (0.0-0.1) K/mm3 Metamyelocytes # 0.0 K/mm3 Myelocytes # 0.0 K/mm3 Promyelocytes # 0.0 K/mm3 Blast Cells # 0.0 K/mm3 WBC Morphology Not Reportable Hypersegmented Neuts Not Reportable Hyposegmented Neuts Not Reportable Hypogranular Neuts Not Reportable Smudge Cells Not Reportable Toxic Granulation Not Reportable Toxic Vacuolation Not Reportable Dohle Bodies Not Reportable Pelger-Huet Anomaly Not Reportable [place] Rods Not Reportable Platelet Estimate Consistent w auto Clumped Platelets Not Reportable Plt Clumps, EDTA Not Reportable Large Platelets Not Reportable Giant Platelets Not Reportable Platelet Satelliting Not Reportable Plt Morphology Comment Not Reportable RBC Morphology Not Reportable Dimorphic RBCs Not Reportable Polychromasia Few Hypochromasia 2+ Poikilocytosis Not Reportable Anisocytosis Not Reportable Microcytosis Not Reportable Macrocytosis Not Reportable Spherocytes Not Reportable Pappenheimer Bodies Not Reportable Sickle Cells Not Reportable Target Cells Not Reportable Tear Drop Cells Not Reportable Ovalocytes Not Reportable Helmet Cells Not Reportable [place] Bodies Not Reportable [place] Rings Not Reportable [place] Cells Not Reportable Bite Cells Not Reportable Crenated Cell Not Reportable Elliptocytes Few Acanthocytes (Spur) Not Reportable Rouleaux Not Reportable Hemoglobin C Crystals Not Reportable Schistocytes Not Reportable Malaria parasites Not Reportable Kevin Bodies Not Reportable Hem Pathologist Commnt No PT 13.0 (12.2-14.9) Sec. INR 0.89 (0.87-1.13) APTT 30.6 (24.2-36.6) Sec. Sodium 138 (137-145) mmol/L Potassium 4.0 (3.6-5.0) mmol/L Chloride 105.0 (98-107) mmol/L Carbon Dioxide 23 (22-30) mmol/L Anion Gap 14 mmol/L BUN 8 (7-17) mg/dL Creatinine 0.5 L (0.6-1.2) mg/dL Estimated GFR > 60 ml/min BUN/Creatinine Ratio 16 % Glucose 97 (65-100) mg/dL Calcium 8.9 (8.4-10.2) mg/dL Total Bilirubin < 0.20 (0.1-1.2) mg/dL AST 10 (5-40) units/L ALT 6 L (7-56) units/L Alkaline Phosphatase 74 (35-129) units/L Total Protein 6.5 (6.3-8.2) g/dL Albumin 3.8 L (3.9-5) g/dL Albumin/Globulin Ratio 1.4 % HCG, Qual (Negative) Blood Type Antibody Screen Crossmatch 12/27/21 12/27/21 12/27/21 Range/Units 17:18 17:18 22:45 WBC (4.5-11.0) K/mm3 RBC (3.65-5.03) M/mm3 Hgb (10.1-14.3) gm/dl Hct (30.3-42.9) % MCV (79-97) fl MCH (28-32) pg MCHC (30-34) % RDW (13.2-15.2) % Plt Count (140-440) K/mm3 Lymph % (Auto) [place] % (Auto) Eos % (Auto) Baso % (Auto) Lymph # (Auto) [place] # (Auto) Eos # (Auto) Baso # (Auto) Add Manual Diff Total Counted Seg Neutrophils % Seg Neuts % (Manual) (40.0-70.0) % Band Neutrophils % % Lymphocytes % (Manual) (13.4-35.0) % Reactive Lymphs % (Man) % Monocytes % (Manual) (0.0-7.3) % Eosinophils % (Manual) (0.0-4.3) % Basophils % (Manual) (0.0-1.8) % Metamyelocytes % % Myelocytes % % Promyelocytes % % Blast Cells % % Nucleated RBC % (0.0-0.9) % Seg Neutrophils # Seg Neutrophils # Man (1.8-7.7) K/mm3 Band Neutrophils # K/mm3 Lymphocytes # (Manual) (1.2-5.4) K/mm3 Abs React Lymphs (Man) K/mm3 Monocytes # (Manual) (0.0-0.8) K/mm3 Eosinophils # (Manual) (0.0-0.4) K/mm3 Basophils # (Manual) (0.0-0.1) K/mm3 Metamyelocytes # K/mm3 Myelocytes # K/mm3 Promyelocytes # K/mm3 Blast Cells # K/mm3 WBC Morphology TNR Hypersegmented Neuts Hyposegmented Neuts Hypogranular Neuts Smudge Cells Toxic Granulation Toxic Vacuolation Dohle Bodies Pelger-Huet Anomaly [place] Rods Platelet Estimate Clumped Platelets Plt Clumps, EDTA Large Platelets Giant Platelets Platelet Satelliting Plt Morphology Comment RBC Morphology Dimorphic RBCs Polychromasia Hypochromasia Poikilocytosis Anisocytosis Microcytosis Macrocytosis Spherocytes Pappenheimer Bodies Sickle Cells Target Cells Tear Drop Cells Ovalocytes Helmet Cells [place] Bodies [place] Rings Jose Cells Bite Cells Crenated Cell Elliptocytes Acanthocytes (Spur) Rouleaux Hemoglobin C Crystals Schistocytes Malaria parasites Kevin Bodies Hem Pathologist Commnt PT (12.2-14.9) Sec. INR (0.87-1.13) APTT (24.2-36.6) Sec. Sodium (137-145) mmol/L Potassium (3.6-5.0) mmol/L Chloride (98-107) mmol/L Carbon Dioxide (22-30) mmol/L Anion Gap mmol/L BUN (7-17) mg/dL Creatinine (0.6-1.2) mg/dL Estimated GFR ml/min BUN/Creatinine Ratio % Glucose (65-100) mg/dL Calcium (8.4-10.2) mg/dL Total Bilirubin (0.1-1.2) mg/dL AST (5-40) units/L ALT (7-56) units/L Alkaline Phosphatase (35-129) units/L Total Protein (6.3-8.2) g/dL Albumin (3.9-5) g/dL Albumin/Globulin Ratio % HCG, Qual Negative (Negative) Blood Type O NEGATIVE Antibody Screen Negative Crossmatch 12/27/21 12/28/21 12/28/21 Range/Units 23:40 05:49 13:37 WBC 7.9 (4.5-11.0) K/mm3 RBC 3.02 L (3.65-5.03) M/mm3 Hgb 6.9 L 7.8 L (10.1-14.3) gm/dl Hct 23.1 L D 25.7 L (30.3-42.9) % MCV 76 L (79-97) fl MCH 23 L (28-32) pg MCHC 30 (30-34) % RDW 29.2 H (13.2-15.2) % Plt Count 502 H (140-440) K/mm3 Lymph % (Auto) [place] % (Auto) Eos % (Auto) Baso % (Auto) Lymph # (Auto) [place] # (Auto) Eos # (Auto) Baso # (Auto) Add Manual Diff Complete Total Counted 100 Seg Neutrophils % Seg Neuts % (Manual) 71.0 H (40.0-70.0) % Band Neutrophils % 0 % Lymphocytes % (Manual) 22.0 (13.4-35.0) % Reactive Lymphs % (Man) 0 % Monocytes % (Manual) 6.0 (0.0-7.3) % Eosinophils % (Manual) 1.0 (0.0-4.3) % Basophils % (Manual) 0 (0.0-1.8) % Metamyelocytes % 0 % Myelocytes % 0 % Promyelocytes % 0 % Blast Cells % 0 % Nucleated RBC % Not Reportable (0.0-0.9) % Seg Neutrophils # Seg Neutrophils # Man 5.6 (1.8-7.7) K/mm3 Band Neutrophils # 0.0 K/mm3 Lymphocytes # (Manual) 1.7 (1.2-5.4) K/mm3 Abs React Lymphs (Man) 0.0 K/mm3 Monocytes # (Manual) 0.5 (0.0-0.8) K/mm3 Eosinophils # (Manual) 0.1 (0.0-0.4) K/mm3 Basophils # (Manual) 0.0 (0.0-0.1) K/mm3 Metamyelocytes # 0.0 K/mm3 Myelocytes # 0.0 K/mm3 Promyelocytes # 0.0 K/mm3 Blast Cells # 0.0 K/mm3 WBC Morphology Not Reportable Hypersegmented Neuts Not Reportable Hyposegmented Neuts Not Reportable Hypogranular Neuts Not Reportable Smudge Cells Not Reportable Toxic Granulation Not Reportable Toxic Vacuolation Not Reportable Dohle Bodies Not Reportable Pelger-Huet Anomaly Not Reportable [place] Rods Not Reportable Platelet Estimate Consistent w auto Clumped Platelets Not Reportable Plt Clumps, EDTA Not Reportable Large Platelets Not Reportable Giant Platelets Not Reportable Platelet Satelliting Not Reportable Plt Morphology Comment Not Reportable RBC Morphology Not Reportable Dimorphic RBCs Not Reportable Polychromasia Not Reportable Hypochromasia 1+ Poikilocytosis Not Reportable Anisocytosis 1+ Microcytosis Not Reportable Macrocytosis Not Reportable Spherocytes Not Reportable Pappenheimer Bodies Not Reportable Sickle Cells Not Reportable Target Cells Not Reportable Tear Drop Cells Not Reportable Ovalocytes Not Reportable Helmet Cells Not Reportable Rodriguez-[place] Bodies Not Reportable [place] Rings Not Reportable [place] Cells Not Reportable Bite Cells Not Reportable Crenated Cell Not Reportable Elliptocytes Not Reportable Acanthocytes (Spur) Not Reportable Rouleaux Not Reportable Hemoglobin C Crystals Not Reportable Schistocytes Not Reportable Malaria parasites Not Reportable Kevin Bodies Not Reportable Hem Pathologist Commnt No PT (12.2-14.9) Sec. INR (0.87-1.13) APTT (24.2-36.6) Sec. Sodium (137-145) mmol/L Potassium (3.6-5.0) mmol/L Chloride (98-107) mmol/L Carbon Dioxide (22-30) mmol/L Anion Gap mmol/L BUN (7-17) mg/dL Creatinine (0.6-1.2) mg/dL Estimated GFR ml/min BUN/Creatinine Ratio % Glucose (65-100) mg/dL Calcium (8.4-10.2) mg/dL Total Bilirubin (0.1-1.2) mg/dL AST (5-40) units/L ALT (7-56) units/L Alkaline Phosphatase (35-129) units/L Total Protein (6.3-8.2) g/dL Albumin (3.9-5) g/dL Albumin/Globulin Ratio % HCG, Qual (Negative) Blood Type Antibody Screen Crossmatch See Detail Patient received a total of 3 units of PRBCs with significant improvement and H&H and improvement in symptoms. Patient will be discharged home to follow-up with CIRCUIT DESIGNER. She only endorses vaginal spotting at this time without significant bleeding. She was informed to continue iron tablets
[2021-12-28 12:07] VITALS: BP 119/67
[2021-12-28 14:11] LABS: Hematocrit 25.7 % (30.3-42.9); Hemoglobin 7.8 gm/dl (10.1-14.3)
--- NOTE | 2021-12-29 13:55 | Electrocardiograph Report ---
[facility] Test Date: 2021-12-27 Test Time: 17:09:10 Pat Name: CALLI BREWER Department: Room: Gender: F Hydraulic Assembler: ayush : 1985 Requested By: ANGIE MORGAN Order Number: [id number] Reading MD: Patrick Morales Measurements Intervals Dorena Rate: 87 P: 79 MA: 168 QRS: 0 QRSD: 83 T: 240 QT: 370 QTc: 447 Interpretive Statements Sinus rhythm Nonspecific T abnormalities, inferior leads Compared to ECG 10/27/2021 02:58:34 Sinus rate has increased by 30 bpm Electronically Signed On 12-29-2021 13:55:17 EDT by Patrick Morales
== END 2021-12-28 15:20 | disposition left against medical advice (07) ==
LOC: ED 16:48
DX: D64.9 Anemia, unspecified (principal); K08.89 Other specified disorders of teeth and supporting structures; N92.0 Excessive and frequent menstruation with regular cycle; D25.9 Leiomyoma of uterus, unspecified
CPT/HCPCS: 36415; 36430; 71045; 80053; 84703; 85007; 85014; 85018; 85025; 85610; 85730; 86850; 86900; 86901; 86920; 93005; 99283; J7040; P9016; 99284